=== PATIENT | female | born 1980 | race Caucasian/White ===

== ENCOUNTER 2017-01-16 09:07 | Inpatient (IN) | payer OTHER ==
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
--- NOTE | ~2017-01-16 | HP ---
Unit #: [id number] #: [id number] Patient: GREGOR JEFFRIES [id number] [place] [address] [id number] MR#: [id number] NAME: GREGOR JEFFRIES ROOM: P209 Age: 36 Sex: F Admission Date: 01/16/2017 : 1980 Attending Physician: Leonard Chowdhury M.D. Admitting Physician: Leonard Chowdhury M.D. Primary Care Physician: Generic Doctor Not In System HISTORY AND PHYSICAL HISTORY OF PRESENT ILLNESS The patient is a 36-year-old female admitted to [address] [place] [address] on 01/16/2017 for suicidal ideations and polysubstance abuse. PAST MEDICAL HISTORY 1. Polysubstance abuse 2. Obesity 3. Migraines 4. Herpes 5. Arthritis 6. Degenerative disc disease PAST SURGICAL HISTORY 1. Low back surgery 2. Bilateral salpingectomy after an ectopic SOCIAL HISTORY She is unemployed. She lives with her son. She smokes one pack of cigarettes daily. Uses alcohol and marijuana on a daily basis and cocaine once weekly. FAMILY MEDICAL HISTORY Noncontributory. ALLERGIES No known drug allergies. CURRENT MEDICATIONS Please see list of home medications. REVIEW OF SYSTEMS CONSTITUTIONAL: No fever or chills. HEENT: Denies any sore throat, ear pain or runny nose. CARDIOVASCULAR: Denies chest pain, irregular heart rhythm or palpitations. CHEST: Denies shortness of breath or cough. No hemoptysis. GASTROINTESTINAL: Denies nausea, vomiting, diarrhea or chronic constipation. ENDOCRINE: Denies history of increased thirst or urination. No recent significant weight loss or gain. GENITOURINARY: Denies dysuria, frequency, or hematuria. SKIN: Denies any rashes. HEMATOLOGIC: Denies history of increased bleeding or bruising. MUSCULOSKELETAL: Denies any hot, swollen joints. No generalized muscle Unit #: [id number] #: [id number] Patient: GREGOR JEFFRIES pain. NEUROLOGIC: Denies problems with vision or speech. No frequent, severe headaches. No numbness, tingling or weakness in any extremities. Denies loss of bladder or bowel control. PHYSICAL EXAM GENERAL: She is awake, alert and oriented in no acute distress. VITAL SIGNS: Temperature 98.5, heart rate 86, respiration 16, blood pressure 99/57. HEIGHT: 5'7". WEIGHT: 173 pounds. SKIN: Warm and dry without rash or lesion. HEENT: Normocephalic. TMs not viewed. Oral and nasal passages clear. Conjunctivae clear. PERRLA. EOMs intact. NECK: Supple without lymphadenopathy or thyromegaly. HEART: Regular rate and rhythm without murmur. LUNGS: Clear. ABDOMEN: Soft, nontender. : Not done. EXTREMITIES: No evidence of cyanosis, clubbing or edema. Moves all without focal deficit. NEUROLOGICAL: Grossly within normal limits. Cranial Nerves: II: Visual lassiter are intact. III, IV AND : Extraocular movements are intact. Pupils are equal, round and reactive to light. V: Facial sensation is grossly normal. VII: Facial movements and expression are normal. VIII: Auditory acuity grossly intact. IX, X: Uvula is midline. Phonation is normal. XI: Patient shrugs shoulders and turns head normally. XII: Tongue protrudes in the midline. Sensory and Motor Function: Sensory and motor sensation is grossly normal. Motor: moves all extremities well. IMPRESSION 1. Psychiatric admission 2. Polysubstance use 3. Obesity 4. Migraines 5. Herpes 6. Arthritis 7. Degenerative disc disease RECOMMENDATIONS Psychiatric per psychiatrist. MEDICAL: 1. No contraindication to participate in facility activities. MEDICAL PROGNOSIS Good. MEDICAL CONDITION Stable. Dictated by... Unit #: [id number] #: [id number] Patient: GREGOR JEFFRIES Catherine Denis/robyn TD: 01/17/2017 00:52 JOB #: [id number] HISTORY AND PHYSICAL Page 1 of 1 X ALEXIS ROWELL APRN X HISTORY AND PHYSICAL
== END 2017-01-17 11:58 | DRG 897 ==
LOC: P2S 09:07
DX: F11.10 Opioid abuse, uncomplicated (principal); R45.851 Suicidal ideations; F43.21 Adjustment disorder with depressed mood; E66.9 Obesity, unspecified; G43.909 Migraine, unspecified, not intractable, without status migrainosus; F17.210 Nicotine dependence, cigarettes, uncomplicated; F10.10 Alcohol abuse, uncomplicated; F60.3 Borderline personality disorder